=== PATIENT | male | born 1970 | race Caucasian/White ===

== ENCOUNTER 2021-07-16 12:53 | Emergency (ER) | payer MEDICAID ==
[~2021-07-16] VITALS: Ht 170.2 cm; Wt 74.0 kg
[2021-07-16 15:30] VITALS: BP 125/78
[2021-07-16] MEDS ORDERED: BACITRACIN ZINC OINT UDPKT TOP ONE (15:30)
[2021-07-16] MEDS ORDERED: TETANUS, DIPHTHERIA, PERTUSSIS VAC/PF 0.5ML (>10YR OLD) IM ONE (15:30)
[2021-07-16] MEDS ORDERED: LIDOCAINE HCL/PF 1% 10 MG/ML 5ML VIAL INFIL ONE (15:30)
[2021-07-16] MEDS ORDERED: ACETAMINOPHEN WITH CODEINE 300/30MG TABLET PO ONE (15:30)
[2021-07-16] MEDS ORDERED: BO1 TP (16:12)
== END 2021-07-16 17:49 | disposition home or self-care (01) ==
LOC: ER 12:53
DX: S61.212A Laceration without foreign body of right middle finger without damage to nail, initial encounter (principal); W26.8XXA Contact with other sharp object(s), not elsewhere classified, initial encounter; Y93.89 Activity, other specified; Y92.89 Other specified places as the place of occurrence of the external cause; Y99.0 Civilian activity done for income or pay
CPT/HCPCS: 12001; 90471; 90715; 99283; J3490

== ENCOUNTER 2021-08-04 14:24 | Emergency (ER) | payer MEDICAID ==
[~2021-08-04] VITALS: Ht 167.6 cm; Wt 73.0 kg
[~2021-08-04 14:24] MED LIST: BO1 TP
[2021-08-04] MEDS ORDERED: FLUORESCEIN SODIUM 1MG/STRIP LEFTEYE ONE (16:30)
[2021-08-04] MEDS ORDERED: TETRACAINE 0.5% OPHTH DROPS 4ML LEFTEYE ONE (16:30)
[2021-08-04] MEDS ORDERED: IBUPROFEN 400MG TABLET PO ONE (17:30)
[2021-08-04] MEDS ORDERED: TETANUS, DIPHTHERIA, PERTUSSIS VAC/PF 0.5ML (>10YR OLD) IM ONE (17:30)
[2021-08-04] MEDS ORDERED: IBUP-2028 MT (17:38)
[2021-08-04 18:14] VITALS: BP 127/83
== END 2021-08-04 18:18 | disposition home or self-care (01) ==
LOC: ER 14:24
DX: T15.92XA Foreign body on external eye, part unspecified, left eye, initial encounter (principal); W26.8XXA Contact with other sharp object(s), not elsewhere classified, initial encounter; Y93.89 Activity, other specified; Y92.89 Other specified places as the place of occurrence of the external cause
CPT/HCPCS: 90471; 90715; 99283